=== PATIENT | female | born 1980 ===

== ENCOUNTER 2017-09-16 19:13 | Emergency (ER) | payer BC ==
[2017-09-16 20:59] LABS: BASO # 0.1 K/uL (0.0-0.2); BASO % 0.6 % (0.0-2.0); EOS # 0.3 K/uL (0.0-0.7); HEMATOCRIT 39.4 % (34.0-47.0); LYMPH # 3.8 K/uL (1.0-4.3); MEAN CELL VOLUME 78.9 fL (81.0-99.0); MEAN CORPUSCULAR HEMOGLOBIN 25.8 pg (27.0-31.0); MEAN CORPUSCULAR HGB CONC 32.7 g/dL (33.0-37.0); MEAN PLATELET VOLUME 7.8 fL (7.2-11.7); MONO # 0.6 K/uL (0.0-0.8); MONO % 7.4 % (0.0-10.0); NRBC % 0.2 % (0.0-2.0); RED CELL DISTRIBUTION WIDTH 13.7 % (11.5-14.5); WHITE BLOOD COUNT 8.7 K/uL (4.8-10.8)
[2017-09-16 21:04] LABS: RBC URINE 30 /hpf (0-3); TRANSITIONAL EPITHIAL < 1 /hpf (0-3); URINE BACTERIA OCC (<OCC); URINE BILIRUBIN NEGATIVE (NEGATIVE); URINE BLOOD 3+ (NEGATIVE); URINE COLOR Yellow (YELLOW); URINE GLUCOSE (UA) NORMAL (Normal); URINE KETONE NEGATIVE (NEGATIVE); URINE PROTEIN NEGATIVE (NEGATIVE); URINE UROBILINOGEN NORMAL mg/dL (0.2-1.0); WBC URINE 3 /hpf (0-5)
[2017-09-16 21:06] LABS: URINE LEUKOCYTE ESTERASE NEGATIVE Leu/uL (Negative)
[2017-09-16 21:11] LABS: ALB/GLOB RATIO 1.2 (1.0-2.1); ALKALINE PHOSPHATASE 68 U/L (38-126); ALT/SGPT 125 U/L (9-52); AST/SGOT 75 U/L (14-36); BILIRUBIN,TOTAL 0.7 mg/dL (0.2-1.3); BLOOD UREA NITROGEN 14 mg/dL (7-17); CALCIUM 8.5 mg/dl (8.6-10.4); CARBON DIOXIDE 26 mmol/L (22-30); CHLORIDE 103 mmol/L (98-107); GFR AFRICAN-AMERICAN > 60; GLUCOSE,RANDOM 87 mg/dL (65-105); POTASSIUM 3.7 mmol/L (3.6-5.2); SODIUM 138 mmol/L (132-148); TOTAL PROTEIN 7.5 g/dL (6.3-8.3)
[2017-09-16] MEDS ORDERED: Iohexol 240 (50 ml) PO STA (21:49)
[2017-09-16] MEDS ORDERED: Iohexol 240 (50 ml) ONE (21:57)
[2017-09-16 22:05] VITALS: TEMP 98.2
--- NOTE | 2017-09-16 22:06 | C.PDOC ---
History Of Present Illness 36 year old female presents to the ER c/o abdominal distention that has been worsening over the past 2 weeks, associated with nausea. Patient was seen at an urgent care center in [place] earlier today, states a Upreg was done that was negative, as well as an obstructive series that showed large amount of stool and nonspecific bowel gas pattern. Patient reports she has been having regular bowel movements . Has not been seen by advertising agent in approx 15 years; denies known history of uterine fibroids. Patient denies vomiting, fever, dysuria/ hematuria. Time Seen by Provider: 09/16/17 20:06 Chief Complaint (Nursing): GI Problem History Per: Patient History/Exam Limitations: no limitations Current Symptoms Are (Timing): Still Present Location Of Pain/Discomfort: Diffuse Radiation Of Pain To:: None Associated Symptoms: Nausea. denies: Fever, Chills, Vomiting, Urinary Symptoms Exacerbating Factors: None Alleviating Factors: None Last Bowel Movement: Today Abnormal Vaginal Bleeding: No Past Medical History Reviewed: Historical Data, Nursing Documentation, Vital Signs Vital Signs: Last Vital Signs Temp 98.2 F 09/16/17 22:00 Pulse 82 09/17/17 01:09 Resp 16 09/17/17 01:09 BP 155/98 H 09/17/17 01:09 Pulse Ox 99 09/17/17 01:09 - Medical History PMH: Asthma Surgical History: Tonsillectomy Family History: States: No Known Family Hx - Social History Hx Alcohol Use: No Hx Substance Use: No - Immunization History Hx Tetanus Toxoid Vaccination: No Hx Influenza Vaccination: No Hx Pneumococcal Vaccination: No Review Of Systems Except As Marked, All Systems Reviewed And Found Negative. Constitutional: Negative for: Fever, Chills Cardiovascular: Negative for: Chest Pain Respiratory: Negative for: Shortness of Breath Gastrointestinal: Positive for: Nausea, Abdominal Pain (w/ distention). Negative for: Vomiting, Diarrhea Genitourinary: Negative for: Hematuria, Vaginal Discharge, Vaginal Bleeding Physical Exam - Physical Exam Appears: Well, Non-toxic, No Acute Distress Skin: Normal Color, Warm, Dry Head: Normacephalic Eye(s): bilateral: Normal Inspection Oral Mucosa: Moist Cardiovascular: Rhythm Regular Respiratory: Normal Breath Sounds, No Rales, No Rhonchi, No Wheezing Gastrointestinal/Abdominal: Bowel Sounds, Soft, Tenderness (Mild diffuse TTP, greatest around umbilicus), Distention (Mild), No Guarding, No Rebound, No Ascites Back: No CVA Tenderness Neurological/Psych: Oriented x3 ED Course And Treatment - Laboratory Results Result Diagrams: 09/16/17 20:52 09/16/17 20:52 O2 Sat by Pulse Oximetry: 100 (Room air) Pulse Ox Interpretation: Normal - Other Rad CT SCAN ABD/PELVIS X-Ray: Viewed By Me, Read By Radiologist Interpretation: Accession No. : [id number]. Patient Name / ID : ALEXANDER RAMOS / [id number]. Exam Date : 09/16/2017 23:43:14 ( Approved ). Study Comment : Sex / Age : F / 36Y. Creator : BATSHEVA GABRIEL. Dictator : Hospital Social Worker : College Football Coach : BATSHEVA GABRIEL. Approver2 : Report Date : 2016 00:20:00. My Comment : . [facility]LY [facility]. [facility] Division of Radiology. [address] [place] [address]. Tel. no. . . . Patient Name: RACHEL MUNOZ . Pt. Address: [address] [place] [address] Rec #: [id number]. [place] [address]: Deirdre Brewster DO Pt Phone: Order Location: [facility] : 1980 Female Age: 36 Order #: [id number]. Reason for exam: distended abd and abd pain. . . . . . CT Scan. . . ABD PELVIS PO IV CONTRAST Exam Date: 09/16/17. . This imaging exam was performed at [facility]. EXAM: CT Abdomen and Pelvis With Intravenous Contrast. . CLINICAL HISTORY: 36 years old, female; Pain; Abdominal pain; Generalized; Additional info: Distended abd and abd pain. . TECHNIQUE: Axial computed tomography images of the abdomen and pelvis with intravenous. contrast. All CT scans at this facility use one or more dose reduction. techniques, viz.: automated exposure control; ma/kV adjustment per patient size. (including targeted exams where dose is matched to indication; i.e. head); or. iterative reconstruction technique. Coronal and sagittal reformatted images were created and reviewed. . CONTRAST: 100 mL of VISIPAQUE administered intravenously. . COMPARISON: No relevant prior studies available. . . . FINDINGS: Lower thorax: The bilateral lung bases are clear. . ABDOMEN: Liver: The liver is enlarged. Gallbladder and bile ducts: The gallbladder is decompressed. No calcified. stones. No significant intra- or extrahepatic biliary ductal dilation. Pancreas: Enhances homogeneously. No ductal dilation. No discrete mass. Spleen: No acute findings. Adrenals: No acute findings. Kidneys and ureters: No acute findings. No hydronephrosis or renal calculi. No discrete solid mass. . PELVIS: Bladder: No acute findings. Reproductive: A rounded focus of fluid attenuation is identified within the. right ovary measuring 4.6 cm in greatest dimension, statistically a right. ovarian cyst. The uterus is heterogeneous in attenuation and nodular in contour. suggesting fibroid disease. Appendix: The contrast filled appendix is of normal caliber (series 3, image. 105). . ABDOMEN and PELVIS: Stomach and bowel: No obstruction. No mucosal thickening. Peritoneum: No significant fluid collection. No free air. Lymph nodes: No pathologically enlarged lymph nodes. Vasculature: Unremarkable. Bones: No acute fracture. . IMPRESSION: . Findings within the right hemipelvis which likely represents a right ovarian. cyst, for which pelvic ultrasound may be performed for confirmation. Fibroid uterus. Hepatomegaly. Normal appendix. . Dictated By: Batsheva Gabriel MD. Dictated Date/Time: 12/03. Signed By: Batsheva Gabriel MD. Date Signed: 09/17/1719. Transcribed By: [facility]. Transcribe Date/Time: 09/17/1719. JARETH/VASHTI Progress Note: Blood work, urinalysis, Upreg and CT scan abd/pelvis ordered and reviewed. Reevaluation Time: 01:00 Reassessment Condition: Improved (Patient reassessed, is resting comfortably, in no current pain/distress. CT scan shows right ovarian cyst and fibroid uterus. On exam, abdomen is soft and nontender. Patient given Rx for naprosyn and instructed to follow up with advertising agent within 1 week. She understands she should return to ED if symptoms worsen.) Disposition Counseled Patient/Family Regarding: Studies Performed, Diagnosis, Need For Followup, Rx Given - Disposition Referrals: [facility] [Outside] Disposition: HOME/ ROUTINE Disposition Time: 01:00 Condition: STABLE Additional Instructions: FOLLOW UP WITH OSTEOPATHIC MEDICINE TEACHER WITHIN 1 WEEK HAVE OUTPATIENT PELVIC ULTRASOUND DONE BY THEM RETURN TO ER IMMEDIATELY IF YOU HAVE SEVERE PAIN Prescriptions: Naproxen 375 mg PO BID PRN #20 tablet PRN Reason: pain Instructions: Ovarian Cyst (ED), Uterine Fibroids (ED) Forms: [employer] (Greenlandic) Print Language: PERSIAN - Clinical Impression Clinical Impression: Uterine fibroid, Ovarian cyst - Scribe Statement The provider has reviewed the documentation as recorded by the Scribwes Newman All medical record entries made by the Bhaktiibwes were at my direction and personally dictated by me. I have reviewed the chart and agree that the record accurately reflects my personal performance of the history, physical exam, medical decision making, and the department course for this patient. I have also personally directed, reviewed, and agree with the discharge instructions and disposition.
[2017-09-16] MEDS ORDERED: Iodixanol 320 MG/ML 100 ML BOTTLE IV ONE (23:07)
--- NOTE | 2017-09-17 00:20 | CT ---
EXAM: CT Abdomen and Pelvis With Intravenous Contrast CLINICAL HISTORY: 36 years old, female; Pain; Abdominal pain; Generalized; Additional info: Distended abd and abd pain TECHNIQUE: Axial computed tomography images of the abdomen and pelvis with intravenous contrast. All CT scans at this facility use one or more dose reduction techniques, viz.: automated exposure control; ma/kV adjustment per patient size (including targeted exams where dose is matched to indication; i.e. head); or iterative reconstruction technique. Coronal and sagittal reformatted images were created and reviewed. CONTRAST: 100 mL of VISIPAQUE administered intravenously. COMPARISON: No relevant prior studies available. FINDINGS: Lower thorax: The bilateral lung bases are clear. ABDOMEN: Liver: The liver is enlarged. Gallbladder and bile ducts: The gallbladder is decompressed. No calcified stones. No significant intra- or extrahepatic biliary ductal dilation. Pancreas: Enhances homogeneously. No ductal dilation. No discrete mass. Spleen: No acute findings. Adrenals: No acute findings. Kidneys and ureters: No acute findings. No hydronephrosis or renal calculi. No discrete solid mass. PELVIS: Bladder: No acute findings. Reproductive: A rounded focus of fluid attenuation is identified within the right ovary measuring 4.6 cm in greatest dimension, statistically a right ovarian cyst. The uterus is heterogeneous in attenuation and nodular in contour suggesting fibroid disease. Appendix: The contrast filled appendix is of normal caliber (series 3, image 105). ABDOMEN and PELVIS: Stomach and bowel: No obstruction. No mucosal thickening. Peritoneum: No significant fluid collection. No free air. Lymph nodes: No pathologically enlarged lymph nodes. Vasculature: Unremarkable. Bones: No acute fracture. IMPRESSION: Findings within the right hemipelvis which likely represents a right ovarian cyst, for which pelvic ultrasound may be performed for confirmation. Fibroid uterus. Hepatomegaly. Normal appendix.
[2017-09-17 01:10] VITALS: BP 155/98; PULSE 82; RESP 16
[2017-09-22 16:41] VITALS: O2SAT 100
== END 2017-09-17 01:11 | disposition home or self-care (01) ==
LOC: C.ER 19:13 → SUPCPDRO 19:13 → C.ER 09-17 01:11
DX: D25.9 Leiomyoma of uterus, unspecified (principal); N83.201 Unspecified ovarian cyst, right side
CPT/HCPCS: 74177; 80053; 81001; 83690; 84702; 84703; 85025; 99285; Q9966; Q9967

== ENCOUNTER 2017-09-26 16:07 | Emergency (ER) | payer BC ==
[2017-09-26 16:24] VITALS: BMI 33.8
[2017-09-26 16:29] VITALS: RESP 18; TEMP 98.5
--- NOTE | 2017-09-26 16:51 | C.PDOC ---
History Of Present Illness 36 year old female with a history of HTN presents to the ED as a referral by OB/ FIBERGLASS PRODUCT TESTER for evaluation of HTN. Patient was seen in the ED on 09/17/2017 and diagnosed with HTN and uterine fibroids. Patient states she presumed high blood pressure was due to ER stress but when followed up with doctor she was still hypertensive. Patient has a pending PMD evaluation scheduled for mid-October. Oatient denies headache, nausea, dizziness, fever, chills, nausea, vomiting, or other complaints at this time. Time Seen by Provider: 09/26/17 16:37 Chief Complaint (Nursing): High Blood Pressure History Per: Patient, Other (FAMILY PRACTICE PHYSICIAN) History/Exam Limitations: no limitations Associated Symptoms: denies: Chest Pain, Dyspnea, Dizziness, Headache Quality Of Symptoms: Asymptomatic Recent travel outside of the [place]: No Additional History Per: Prior Records Past Medical History Reviewed: Historical Data, Nursing Documentation, Vital Signs Vital Signs: Last Vital Signs Temp 98.5 F 09/26/17 16:26 Pulse 87 09/26/17 17:09 Resp 18 09/26/17 17:09 BP 151/97 H 09/26/17 17:09 Pulse Ox 99 09/26/17 17:17 - Medical History PMH: Asthma Surgical History: Tonsillectomy Family History: States: Unknown Family Hx - Social History Hx Alcohol Use: No Hx Substance Use: No - Immunization History Hx Tetanus Toxoid Vaccination: No Hx Influenza Vaccination: No Hx Pneumococcal Vaccination: No Review Of Systems Constitutional: Negative for: Fever, Chills Cardiovascular: Negative for: Chest Pain, Palpitations Gastrointestinal: Negative for: Nausea, Vomiting, Abdominal Pain, Diarrhea Physical Exam - Physical Exam Appears: Non-toxic, No Acute Distress, Other (Patient's blood pressure is 154/ 97 on exam) Skin: Warm, Dry, No Rash Head: Atraumatic, Normacephalic, No Tenderness Eye(s): bilateral: Normal Inspection, PERRL, EOMI Oral Mucosa: Moist Neck: Supple Chest: Symmetrical, No Deformity Cardiovascular: Rhythm Regular, No Murmur Respiratory: No Rales, No Rhonchi, No Wheezing, Other (clear to auscultation bilaterally ) Gastrointestinal/Abdominal: Soft, No Tenderness, Distention (consistent with fibroids), No Guarding, No Rebound Extremity: Normal ROM, No Tenderness Neurological/Psych: Oriented x3 ED Course And Treatment O2 Sat by Pulse Oximetry: 99 (RA) Pulse Ox Interpretation: Normal Progress Note: Patient was given Catapres. Medical Decision Making Medical Decision Making: Reviewed old records, patient's blood pressure was consistent with prior values from prior visits. Patient will be discharged for HTN and instructed to follow up with PMD. Disposition Counseled Patient/Family Regarding: Diagnosis, Need For Followup - Disposition Referrals: YOUR,PMD [Other] Disposition: HOME/ ROUTINE Disposition Time: 16:52 Condition: IMPROVED Prescriptions: Hydrochlorothiazide [Microzide] 12.5 mg PO DAILY #30 cap Instructions: Hypertension (ED) Forms: [employer] (Kyrgyz) - Clinical Impression Clinical Impression: Uterine fibroid, Hypertension - Scribe Statement The provider has reviewed the documentation as recorded by the Scribe Magda Villalta All medical record entries made by the Scribe were at my direction and personally dictated by me. I have reviewed the chart and agree that the record accurately reflects my personal performance of the history, physical exam, medical decision making, and the department course for this patient. I have also personally directed, reviewed, and agree with the discharge instructions and disposition.
[2017-09-26 17:10] VITALS: BP 151/97; PULSE 87
[2017-09-26 17:13] VITALS: O2SAT 99
== END 2017-09-26 17:10 | disposition home or self-care (01) ==
LOC: C.ER 16:07
DX: I10 Essential (primary) hypertension (principal); D25.9 Leiomyoma of uterus, unspecified

== ENCOUNTER 2017-10-03 14:39 | Emergency (ER) | payer BC ==
[2017-10-03 14:40] VITALS: BMI 33.8
[2017-10-03 15:15] VITALS: O2SAT 98
[2017-10-03 16:21] LABS: RBC URINE 3 /hpf (0-3); TRANSITIONAL EPITHIAL < 1 /hpf (0-3); URINE BACTERIA FEW (<OCC); URINE BILIRUBIN NEGATIVE (NEGATIVE); URINE BLOOD NEGATIVE (NEGATIVE); URINE COLOR Yellow (YELLOW); URINE GLUCOSE (UA) NORMAL (Normal); URINE KETONE NEGATIVE (NEGATIVE); URINE LEUKOCYTE ESTERASE 3+ Leu/uL (Negative); URINE PROTEIN NEGATIVE (NEGATIVE); URINE UROBILINOGEN NORMAL mg/dL (0.2-1.0); WBC URINE 32 /hpf (0-5)
[2017-10-03] MEDS ORDERED: Sodium Chloride 0.9% 1,000 ML IV ONE (16:23)
--- NOTE | 2017-10-03 16:31 | C.PDOC ---
History Of Present Illness 36 year old female with a PMHx of Fibroids and HTN presents to the ED with complaints of fever, chills, and abdominal pain since last night. Patient notes sore throat, diarrhea, and increased urinary frequency that began this morning. Patient took ibuprofen yesterday with minimal relief and has been compliant with blood pressure medications. Patient has an appointment scheduled for this month with allied health professional regarding plan for Fibroids including potential hysterectomy. Patient has not received the flu vaccine this season. Patient denies vomiting, dysuria, or other complaints at this time. Time Seen by Provider: 10/03/17 15:55 Chief Complaint (Nursing): Fever Past Medical History Vital Signs: Last Vital Signs Temp 99.3 F 10/03/17 17:26 Pulse 81 10/03/17 18:17 Resp 20 10/03/17 18:17 BP 146/91 H 10/03/17 18:17 Pulse Ox 98 10/03/17 18:17 - Medical History PMH: Asthma, HTN Surgical History: Tonsillectomy Family History: States: Unknown Family Hx - Social History Hx Alcohol Use: No Hx Substance Use: No - Immunization History Hx Tetanus Toxoid Vaccination: No Hx Influenza Vaccination: No Hx Pneumococcal Vaccination: No Review Of Systems Constitutional: Positive for: Fever, Chills ENT: Positive for: Other (sore throat ) Cardiovascular: Negative for: Chest Pain, Palpitations Respiratory: Negative for: Cough, Shortness of Breath Physical Exam - Physical Exam Appears: Non-toxic, Other (uncomfortable) Skin: Warm, Dry, No Rash Head: Atraumatic, Normacephalic, No Tenderness Eye(s): bilateral: Normal Inspection, PERRL, EOMI Nose: Normal Oral Mucosa: Moist Throat: No Erythema, No Exudate Neck: Normal ROM, Supple Lymphatic: Normal Exam Chest: Symmetrical, No Deformity Cardiovascular: Rhythm Regular Respiratory: No Accessory Muscle Use, No Rales, No Rhonchi, No Wheezing, Other ( clear to auscultation bilaterally) Gastrointestinal/Abdominal: Soft, Tenderness (pelvic tenderness bilaterally), Distention, No Guarding, No Rebound Back: No CVA Tenderness, No Vertebral Tenderness Extremity: Normal ROM, No Tenderness Neurological/Psych: Oriented x3 ED Course And Treatment - Laboratory Results Result Diagrams: 10/03/17 16:36 10/03/17 16:36 O2 Sat by Pulse Oximetry: 98 (RA) Pulse Ox Interpretation: Normal Progress Note: Blood work and labs were ordered. Patient was given Tylenol and IV fluids. Case endorsed to Dr Nuñez pending CT and disposition. Disposition - Disposition Disposition Time: 19:00 Condition: STABLE Forms: [employer] (Polish) - Clinical Impression Clinical Impression: Fever, Abdominal pain - PA / NURSES' ASSOCIATION COUNSELOR / Resident Statement MD/DO has reviewed & agrees with the documentation as recorded. - Scribe Statement The provider has reviewed the documentation as recorded by the Scribe Magda Villalta All medical record entries made by the Bhaktiibwes were at my direction and personally dictated by me. I have reviewed the chart and agree that the record accurately reflects my personal performance of the history, physical exam, medical decision making, and the department course for this patient. I have also personally directed, reviewed, and agree with the discharge instructions and disposition.
[2017-10-03 16:45] LABS: BASO # 0.1 K/uL (0.0-0.2); BASO % 0.4 % (0.0-2.0); EOS # 0.1 K/uL (0.0-0.7); EOS % 0.5 % (0.0-4.0); LYMPH # 2.4 K/uL (1.0-4.3); LYMPH % 19.3 % (20.0-40.0); MEAN CELL VOLUME 78.5 fL (81.0-99.0); MEAN CORPUSCULAR HEMOGLOBIN 25.7 pg (27.0-31.0); MEAN CORPUSCULAR HGB CONC 32.8 g/dL (33.0-37.0); MEAN PLATELET VOLUME 7.6 fL (7.2-11.7); MONO # 0.8 K/uL (0.0-0.8); MONO % 6.3 % (0.0-10.0); NRBC % 0.1 % (0.0-2.0); RED CELL DISTRIBUTION WIDTH 13.4 % (11.5-14.5); WHITE BLOOD COUNT 12.6 K/uL (4.8-10.8)
[2017-10-03 16:55] LABS: ALB/GLOB RATIO 1.3 (1.0-2.1); ALKALINE PHOSPHATASE 71 U/L (38-126); ALT/SGPT 91 U/L (9-52); AST/SGOT 34 U/L (14-36); BILIRUBIN,TOTAL 0.5 mg/dL (0.2-1.3); BLOOD UREA NITROGEN 10 mg/dL (7-17); CALCIUM 8.4 mg/dl (8.6-10.4); CARBON DIOXIDE 25 mmol/L (22-30); CHLORIDE 100 mmol/L (98-107); GFR AFRICAN-AMERICAN > 60; GLUCOSE,RANDOM 91 mg/dL (65-105); POTASSIUM 3.8 mmol/L (3.6-5.2); SODIUM 135 mmol/L (132-148); TOTAL PROTEIN 7.4 g/dL (6.3-8.3)
[2017-10-03] MEDS ORDERED: cefTRIAXone IV 1 gm in Dextros 50 ML IV ONE (16:56)
[2017-10-03] MEDS ORDERED: cefTRIAXone IV 1 gm in Dextros 50 ML IVPB ONE (17:18)
[2017-10-03 17:27] VITALS: TEMP 99.3
[2017-10-03] MEDS ORDERED: Sodium Chloride 0.9% 500 ML IV ONE ×2 (17:37→18:37)
[2017-10-03] MEDS ORDERED: Iohexol 350mg/ml 100 ML ONE (18:06)
[2017-10-03 19:22] VITALS: BP 142/87; PULSE 93; RESP 17
--- NOTE | 2017-10-03 20:28 | CT ---
EXAM: CT Abdomen and Pelvis With Intravenous Contrast CLINICAL HISTORY: 36 years old, female; Pain; Abdominal pain; Flank; Left lower quadrant (llq) TECHNIQUE: Axial computed tomography images of the abdomen and pelvis with intravenous contrast. All CT scans at this facility use one or more dose reduction techniques, viz.: automated exposure control; ma/kV adjustment per patient size (including targeted exams where dose is matched to indication; i.e. head); or iterative reconstruction technique. Coronal and sagittal reformatted images were created and reviewed. CONTRAST: 100 mL of OMNIPAQUE 350 administered intravenously. COMPARISON: CT - ABD PELVIS PO IV CONTRAST 2017-09-16 23:43 FINDINGS: Lower thorax: No acute findings. ABDOMEN: Liver: Fatty infiltration. Gallbladder and bile ducts: No calcified stones. No ductal dilation. Pancreas: No ductal dilation. No mass. Spleen: No splenomegaly. Adrenals: No mass. Kidneys and ureters: No mass. No hydronephrosis. Stomach and bowel: Fluid within small bowel. Fluid/loose stool within cecum. Apparent mild mural/fold thickening vs underdistention of few jejunal loops. No associated inflammatory stranding. Few scattered diverticula within colon. No associated inflammatory stranding. Few minimally distended loops of small bowel, likely ileus. Appendix: Normal caliber. No inflammation. PELVIS: Bladder: Unremarkable. Reproductive: Probable nabothian cysts. ABDOMEN and PELVIS: Intraperitoneal space: No significant fluid collection. No free air. Bones/joints: No acute fracture. Soft tissues: Unremarkable. Vasculature: Unremarkable. No aneurysm. Lymph nodes: No pathologically enlarged lymph nodes. IMPRESSION: 1. Possible mild enteritis. Clinical correlation is needed. 2. Incidental/non-acute findings are described above.
== END 2017-10-03 21:53 | disposition home or self-care (01) ==
LOC: C.ER 14:39
DX: R10.9 Unspecified abdominal pain (principal); R50.9 Fever, unspecified
CPT/HCPCS: 74177; 80053; 81001; 83690; 84703; 85025; 87086; 87804; 96360; 96361; 99285; J0696; J7040; Q9967

== ENCOUNTER 2018-05-02 10:25 | Inpatient (IN) | payer BC ==
[2018-05-02 11:55] LABS: PROTHROMBIN TIME 11.4 SECONDS (9.7-12.2)
[2018-05-02] MEDS ORDERED: cefOXitin IV 2 gm in Dextrose 2 GM/50 ML BAG IVPB ONE (13:40)
[2018-05-02] MEDS ORDERED: Midazolam 2 MG/2 ML VIAL ONE (13:54)
[2018-05-02] MEDS ORDERED: Propofol 10 mg/ml Inj (20 ML) ONE (13:55)
[2018-05-02] MEDS ORDERED: ePHEDrine 50 mg/ml Inj ONE (14:23)
[2018-05-02] MEDS ORDERED: Rocuronium 10 mg/ml (5 ml) ONE (14:23)
[2018-05-02] MEDS: Bupivacaine 0.25% 20 ML INJ IJ ONE ×2 (14:45→15:47)
[2018-05-02] MEDS ORDERED: Vasopressin 20 Units/ml Inj ONE (15:39)
[2018-05-02] MEDS ORDERED: Clindamycin 2% Vaginal Cream(40 gm) ONE (15:39)
[2018-05-02] MEDS ORDERED: Rocuronium 10 mg/ml (10 ml) ONE (17:05)
--- NOTE | 2018-05-02 17:59 | PCM.SURG1 ---
Surgeon's Initial Post Op Note - Surgeon's Notes Surgeon: Dr. Conklin Wrap Checker: DR. Beatty Type of Anesthesia: General Endo Pre-Operative Diagnosis: Chronic pelvic pain, dysmenorrhea, menorrhagia Operative Findings: uterus approx 10 cm in size. Enlarged ovaries bilaterally with multiple small cysts, otherwise, normal appearing anatomy Post-Operative Diagnosis: same Operation Performed: total laparoscopic hysterectomy, BSO, cystoscopy Specimen/Specimens Removed: uterus, cervix, bilateral fallopian tubes and ovaries Estimated Blood Loss: EBL {In ML}: 150 Blood Products Given: N/A Drains Used: No Drains Post-Op Condition: Good Date of Surgery/Procedure: 05/02/18 Time of Surgery/Procedure: 14:25
[2018-05-02] MEDS ORDERED: cefOXitin IV 2 gm in Dextrose 2 GM/50 ML BAG IVPB SCH (18:00)
[2018-05-02] MEDS: HYDROmorphone 0.5 mg/0.5 ml ISec IVP PRN ×4 (18:15→19:05)
[2018-05-02] MEDS: Sodium Chloride 0.9% 1,000 ML IV SCH (20:00)
[2018-05-02] MEDS: cefOXitin IV 2 gm in Dextrose 2 GM/50 ML BAG IVPB SCH (21:54)
[2018-05-03] MEDS: cefOXitin IV 2 gm in Dextrose 2 GM/50 ML BAG IVPB SCH ×2 (06:07→14:05)
[2018-05-03] MEDS: Sodium Chloride 0.9% 1,000 ML IV SCH (06:08)
[2018-05-03 07:13] LABS: HEMOGLOBIN 11.3 g/dL (11.0-16.0); MEAN CORPUSCULAR HEMOGLOBIN 26.7 pg (27.0-31.0); MEAN CORPUSCULAR HGB CONC 32.9 g/dL (33.0-37.0); MEAN PLATELET VOLUME 7.7 fL (7.2-11.7); RBC 4.24 Mil/uL (3.80-5.20); WHITE BLOOD COUNT 9.9 K/uL (4.8-10.8)
[2018-05-03 07:21] LABS: BLOOD UREA NITROGEN 11 mg/dL (7-17); CALCIUM 7.8 mg/dl (8.6-10.4); GFR AFRICAN-AMERICAN > 60; GFR NON-AFRICAN AMERICAN > 60
[2018-05-03 08:45] VITALS: BP 122/79; PULSE 74; RESP 18; O2SAT 98
[2018-05-03 11:44] VITALS: TEMP 98.3
--- NOTE | 2018-05-05 03:17 | OP ---
PROCEDURE DATE: 05/02/2018 SURGEON: Simona Conklin MD RELATIONSHIP SPECIALIST SURGEON: Matthew Beatty MD TYPE OF ANESTHESIA: General endotracheal. PREOPERATIVE DIAGNOSES: Chronic pelvic pain, dysmenorrhea, menorrhagia. POSTOPERATIVE DIAGNOSES: Chronic pelvic pain, dysmenorrhea, menorrhagia. INTRAOPERATIVE FINDINGS: Uterus approximately 10 cm in size and large ovaries bilaterally with multiple small cysts. Otherwise, normal appearing anatomy. SURGERY PERFORMED: Total laparoscopic hysterectomy, bilateral salpingo-oophorectomy, and cystoscopy. SPECIMENS REMOVED: Uterus, cervix, and bilateral fallopian tubes and ovaries. ESTIMATED BLOOD LOSS: 150 mL. BLOOD PRODUCTS: There were no blood products given. DRAINS: There were no drains used. POSTOPERATIVE CONDITION: Stable. ADDITIONAL COMMENTS: All lap counts and instrument counts were correct x3. DESCRIPTION OF PROCEDURE: After all relevant documentation was reviewed and signed by , the patient was taken back to the OR room. She was prepped and draped in the usual sterile fashion after being placed in lithotomy position. A weighted speculum was then introduced and the anterior lip of the cervix was grabbed with a single-tooth tenaculum. The cervix was then serially dilated until a VCare device was inserted. Once the VCare device was in place, attention was then placed to the patient's abdomen where a 5-mm umbilical incision was made with the use of a scalpel. The laparoscope was then entered into the intraabdominal cavity under direct visualization. On confirmation, we were inside the intraabdominal cavity, a pneumoperitoneum were achieved. Bilateral lower quadrant ports were placed under direct visualization, both 5 mm in size. Attention was then placed to the right adnexa where the round ligament was cauterized and cut with the use of the ligature, and the anterior lip of the broad ligament was then dissected down. The fallopian tube was then transected and cut, and the posterior lip of the broad ligament was then transected down in order to skeletonize the uterine arteries. The bladder flap was created on the right side, and these sets were then repeated on the left side in the same fashion. The uterine arteries were then cauterized and cut bilaterally, and the cardinal ligaments as well. Decision was then made to proceed with the colpotomy from the vagina. Attention was then placed to the patient's vagina where the cervix was grasped with single-tooth tenaculum and Pitressin was injected circumferentially. Once the colpotomy was made, the colpotomy was then extended circumferentially until the cervix was released. Bilateral uterosacral ligaments were then cauterized and cut and suture ligated. The uterus was then delivered vaginally and the vaginal cuff was re-approximated with the use of 0 Vicryl and two layers in a running locked fashion. Excellent hemostasis was noted. Attention was then placed inside the intraabdominal cavity once again where a small amount of bleeding was noted from the vaginal cuff and was cauterized with a use of ligature. FloSeal and Interceed were then placed, and excellent hemostasis was noted even after evacuating the pneumoperitoneum. Prior to evacuating the pneumoperitoneum, attention was then placed to the right ovary where the IP ligament was transected and cut and the ovary and remaining portion of the fallopian tube was then removed under direct visualization. In a similar fashion, the right fallopian tube was then removed as well. The pedicles were also examined, and no area of active bleeding was noted. Pneumoperitoneum was evacuated, and the ports were removed. The right lower quadrant port which had been previously extended in order to deliver the right ovary. The fascia was re-approximated with the use of Cole-Jada device and 0 Vicryl. The skin was then re-approximated with the use of 3-0 Monocryl in a subcuticular fashion and Dermabond was placed over the bilateral lower quadrant insertion. The umbilical incision was covered with a 2 x 2 and a Tegaderm. We proceeded now with the cystoscopy. The Horn catheter was removed. The cystoscope was introduced. The dome of the bladder appeared intact and bilateral urethral jets were noted. The vagina was then packed. Horn was replaced, and the patient was then taken to the recovery room in stable condition. Simona Conklin MD
== END 2018-05-03 21:04 | disposition home or self-care (01) | DRG 743 ==
LOC: C.SDS 10:25 → C.4M 18:00
PROVIDERS: ADMIT Obstetrics & Gynecology; ATTEND Obstetrics & Gynecology
PROC: 0UT24ZZ Resection of Bilateral Ovaries, Percutaneous Endoscopic Approach (ICD-10-PCS; 2018-05-02)
PROC: 0UT74ZZ Resection of Bilateral Fallopian Tubes, Percutaneous Endoscopic Approach (ICD-10-PCS; 2018-05-02)
PROC: 0TJB8ZZ Inspection of Bladder, Via Natural or Artificial Opening Endoscopic (ICD-10-PCS; 2018-05-02)
PROC: 0UT94ZZ Resection of Uterus, Percutaneous Endoscopic Approach (ICD-10-PCS; principal; 2018-05-02 13:45)
DX: N88.8 Other specified noninflammatory disorders of cervix uteri (principal); N92.0 Excessive and frequent menstruation with regular cycle; N94.6 Dysmenorrhea, unspecified; N83.02 Follicular cyst of left ovary; N83.01 Follicular cyst of right ovary; N83.292 Other ovarian cyst, left side; N83.291 Other ovarian cyst, right side; R10.2 Pelvic and perineal pain

== ENCOUNTER 2018-05-08 18:57 | Observation (INO) | payer BC ==
[2018-05-08 18:58] VITALS: BMI 33.8
[2018-05-08] MEDS ORDERED: Sodium Chloride 0.9% 1,000 ML ONE (19:44)
[2018-05-08] MEDS ORDERED: Sodium Chloride 0.9% 1,000 ML IV ONE ×2 (19:47→20:03)
[2018-05-08 19:56] LABS: VENOUS BLOOD GAS BASE EXCESS 2.8 mmol/L (0.0-2.0); VENOUS BLOOD GAS PCO2 40 mmHg (40-60); VENOUS BLOOD GAS PO2 43 mm/Hg (30-55); VENOUS BLOOD PH 7.44 (7.32-7.43)
--- NOTE | 2018-05-08 20:03 | C.PDOC ---
History Of Present Illness 37 y/o female presents to the ED with complaints of fever and abdominal pain, worsening since 05/06/18. Patient is s/p total abdominal hysterectomy on . Otherwise she denies any nausea, vomiting, diarrhea, or other associated symptoms. Temperature on arrival is 100.8 Time Seen by Provider: 05/08/18 20:02 Chief Complaint (Nursing): Fever History Per: Patient History/Exam Limitations: no limitations Onset/Duration Of Symptoms: Days Current Symptoms Are (Timing): Still Present Severity: Moderate Pain Scale Rating Of: 5 Reports Recently: Treated By A Physician Recent travel outside of the [place]: No Additional History Per: Prior Records Past Medical History Reviewed: Historical Data, Nursing Documentation, Vital Signs Vital Signs: Last Vital Signs Temp 100.1 F H 05/09/18 00:03 Pulse 89 05/08/18 23:47 Resp 17 05/08/18 23:47 BP 122/69 05/08/18 23:47 Pulse Ox 97 05/08/18 23:59 - Medical History PMH: Asthma (NEVER HOSPITALIZED), HTN, Hypercholesterolemia, Hypothyroidism Denies: Chronic Kidney Disease Surgical History: Tonsillectomy Other Surgeries: Total abdominal hysterectomy 05/03 Family History: States: Unknown Family Hx - Social History Hx Alcohol Use: No Hx Substance Use: No - Immunization History Hx Tetanus Toxoid Vaccination: No Hx Influenza Vaccination: No Hx Pneumococcal Vaccination: No Review Of Systems Constitutional: Positive for: Fever Gastrointestinal: Positive for: Abdominal Pain. Negative for: Nausea, Vomiting , Diarrhea Physical Exam - Physical Exam Appears: Non-toxic, No Acute Distress Skin: Warm, Dry Head: Normacephalic Eye(s): bilateral: Normal Inspection Oral Mucosa: Dry Neck: Trachea Midline, Supple Chest: Symmetrical Cardiovascular: Rhythm Regular Respiratory: No Rales, No Rhonchi, No Wheezing Gastrointestinal/Abdominal: Soft, Tenderness (diffuse), No Distention, Other ( incision sites are clean and dry, no surrounding erythema) Back: Normal Inspection Extremity: Bilateral: Atraumatic, No Pedal Edema, Normal ROM Pulses: Left Dorsalis Pedis: Normal, Right Dorsalis Pedis: Normal Neurological/Psych: Oriented x3 Gait: Steady ED Course And Treatment - Laboratory Results Result Diagrams: 05/08/18 20:12 05/08/18 20:52 O2 Sat by Pulse Oximetry: 97 (RA) Pulse Ox Interpretation: Normal - CT Scan/US CT A/P Other Rad Studies (CT/US): Read By Radiologist, Radiology Report Reviewed CT/US Interpretation: Name: RACHEL MUNOZ Age: 37Years F Date: 05/08/2018. Requesting Physician: CARMEN LOYD : 1980. [facility] Procedure Ordered As Accession Number of. Images. CT ABDOMEN/PELVIS. W. CT ABD PELVIS IV CONTRAST. ONLY. [id number]. J. 614. Provided Clinical History: abd pain s/p recent KIMBER. EXAM: CT Abdomen and Pelvis With Intravenous Contrast. EXAM DATE/TIME: Examination ordered 05/08/2018 9:49 PM. Image number total count reviewed 614. CLINICAL HISTORY: The patient is 37 years old and is female; Pain; Abdominal pain; Localized; Right lower quadrant ( rlq);. Prior surgery; Surgery date: <1 month; Surgery type: Hysterectomy; Additional info: Abd pain S/P. recent kimber Facility exam id and description: Ct_ abdpelciv abd pelvis iv contrast only. TECHNIQUE: Axial computed tomography images of the abdomen and pelvis with intravenous contrast. All CT. scans at this facility use at least one of these dose optimization techniques: automated exposure. control; mA and/or kV adjustment per patient size (includes targeted exams where dose is matched to. clinical indication); or iterative reconstruction. Coronal and sagittal reformatted images were created and reviewed. COMPARISON: CT - ABD PELVIS IV CONTRAST ONLY 2017-10-03 20:05. FINDINGS: LUNG BASES: Dependent atelectasis. ABDOMEN: LIVER: Unremarkable. GALLBLADDER AND BILE DUCTS: Unremarkable. No calcified stones. No ductal dilation. PANCREAS: Unremarkable. No mass. No ductal dilation. SPLEEN: Unremarkable. No splenomegaly. ADRENALS: Unremarkable. No mass. KIDNEYS AND URETERS: Unremarkable. No solid mass. No hydronephrosis. STOMACH AND BOWEL: Unremarkable. No obstruction. No mucosal thickening. PELVIS: APPENDIX: The appendix is thickened measuring up to 1.1cm which may be from developing. appendicitis. Correlate clinically. BLADDER: Unremarkable. REPRODUCTIVE: 7 x 4 cm collection with foci of air at the operative site from hysterectomy may be. abscess. Evaluate clinically. There is mild inflammatory changes in the pelvis. ABDOMEN and PELVIS: INTRAPERITONEAL SPACE: See above. BONES/JOINTS: No acute fracture. SOFT TISSUES: Unremarkable. VASCULATURE: Unremarkable. No abdominal aortic aneurysm. LYMPH NODES: There are few pericecal lymph nodes that may be reactive. IMPRESSION: 1. 7 x 4 cm collection with foci of air at the operative site from hysterectomy may be abscess. Evaluate clinically. There is mild inflammatory changes in the pelvis. 2. The appendix is thickened measuring up to 1.1cm which may be from developing appendicitis. Correlate clinically. 3. There are few pericecal lymph nodes that may be reactive. Thank you for allowing us to participate in the care of your patient. Dictated and Authenticated by: Chiara Campoverde MD. 05/08/2018 11:35 PM Eastern Time ( [place] & [place]) Progress Note: Labs, Chest X-ray, VBG ordered. Patient treated with IV fluids, 30 mg IV Toradol, and 2 mg IV Morphine. Also given IV Zosyn and Vanco. 11:43pm Received call from [facility], discussed acute CT findings. 11:50 PM Placed call to dr conklin [phone]. spoke also with dr Landers. Ok to admit Disposition Discussed With .: Simona Conklin Comment: acceptd the pt on her service and took over the care at 12;30 am Counseled Patient/Family Regarding: Studies Performed, Diagnosis - Disposition Disposition: HOSPITALIZED Disposition Time: 20:03 Condition: FAIR Forms: [facility] (Martiniquais) - POA Present On Arrival: Poor Glycemic Control - Clinical Impression Clinical Impression: Vomiting, Abdominal abscess - Scribe Statement The provider has reviewed the documentation as recorded by the Scribe (Leti Enciso) Provider Attestation: All medical record entries made by the Scribe were at my direction and personally dictated by me. I have reviewed the chart and agree that the record accurately reflects my personal performance of the history, physical exam, medical decision making, and the department course for this patient. I have also personally directed, reviewed, and agree with the discharge instructions and disposition. Decision To Admit - Pt Status Changed To: Hospital Disposition Of: Observation - . Bed Request Type: Regular Admitting Physician: Simona Conklin Patient Diagnosis: Abdominal pain, Vomiting, Abdominal abscess
[2018-05-08] MEDS ORDERED: Piperacillin/Tazobact 3.375 gm 100 ML IVPB STA (20:04)
[2018-05-08 20:09] LABS: BASO % 0.2 % (0.0-2.0); EOS # 0.1 K/uL (0.0-0.7); EOS % 0.7 % (0.0-4.0); LYMPH # 1.1 K/uL (1.0-4.3); LYMPH % 6.3 % (20.0-40.0); MEAN CELL VOLUME 79.8 fL (81.0-99.0); MEAN CORPUSCULAR HEMOGLOBIN 26.1 pg (27.0-31.0); MEAN CORPUSCULAR HGB CONC 32.8 g/dL (33.0-37.0); MEAN PLATELET VOLUME 7.5 fL (7.2-11.7); MONO # 1.2 K/uL (0.0-0.8); MONO % 6.9 % (0.0-10.0); NEUT # 15.5 K/uL (1.8-7.0); NEUT % 85.9 % (50.0-75.0); NRBC % 0.2 % (0.0-2.0); PLATELET COUNT 308 K/uL (130-400); RBC 4.22 Mil/uL (3.80-5.20); RED CELL DISTRIBUTION WIDTH 13.5 % (11.5-14.5)
[2018-05-08 20:12] LABS: WHITE BLOOD COUNT 18.1 K/uL (4.8-10.8)
[2018-05-08] MEDS ORDERED: Vancomycin 1 GM 1 GM/250 ML BAG IVPB SCH (20:15)
[2018-05-08 20:17] LABS: INR 1.2; PROTHROMBIN TIME 13.1 SECONDS (9.7-12.2)
[2018-05-08] MEDS ORDERED: Piperacillin/Tazobact 3.375 gm 100 ML IVPB ONE (20:20)
[2018-05-08 20:32] LABS: ANISOCYTOSIS SLIGHT; BANDS 8 % (0-2); EOSINOPHIL 1 % (0-4); HYPOCHROMIC SLIGHT; LYMPHOCYTE 5 % (20-40); MONOCYTE 3 % (0-10); NEUTROPHIL 83 % (50-75); PLATELET ESTIMATE NORMAL (NORMAL); POIKILOCYTOSIS SLIGHT; TOTAL CELLS COUNTED 100
[2018-05-08 20:33] LABS: TARGET CELLS SLIGHT; TEARDROP CELLS SLIGHT
[2018-05-08 21:09] LABS: ALB/GLOB RATIO 1.1 (1.0-2.1); ALT/SGPT 34 U/L (9-52); AST/SGOT 28 U/L (14-36); BLOOD UREA NITROGEN 11 mg/dL (7-17); CALCIUM 8.9 mg/dl (8.6-10.4); GFR AFRICAN-AMERICAN > 60; GFR NON-AFRICAN AMERICAN > 60
[2018-05-08 21:36] LABS: URINE BILIRUBIN NEGATIVE (NEGATIVE); URINE CLARITY HAZY (Clear); URINE COLOR YELLOW (YELLOW); URINE GLUCOSE (UA) Normal (Normal)
[2018-05-08 21:37] LABS: LIPASE 26 U/L (23-300)
[2018-05-08 21:37] LABS: SQUAMOUS EPITHIAL 8 /hpf (0-5); URINE BACTERIA RARE (<OCC); URINE BLOOD 2+ (NEGATIVE); URINE LEUKOCYTE ESTERASE 3+ Leu/uL (Negative); URINE PROTEIN NEGATIVE (NEGATIVE); URINE UROBILINOGEN Normal mg/dL (0.2-1.0)
[2018-05-08] MEDS ORDERED: Vancomycin 1 gm/NS 200 ml 1 GM/200 ML BAG IVPB ONE (22:00)
[2018-05-08] MEDS ORDERED: Iodixanol 320 MG/ML 100 ML BOTTLE IV ONE (22:12)
[2018-05-09] MEDS ORDERED: Sodium Chloride 0.9% 1,000 ML IV ONE (00:32)
[2018-05-09] MEDS: Piperacillin/Tazobact 3.375 GM in Sodium Chloride 100 ML IVPB SCH ×3 (01:26→17:23)
[2018-05-09 07:37] VITALS: RESP 20
--- NOTE | 2018-05-09 08:44 | RAD ---
Date of service: 05/08/2018 PROCEDURE: CHEST RADIOGRAPH, 1 VIEW HISTORY: Fever COMPARISON: None available. FINDINGS: LUNGS: The lungs are well inflated and clear. PLEURA: No pneumothorax or pleural fluid seen. CARDIOVASCULAR: Normal. OSSEOUS STRUCTURES: No significant abnormalities. VISUALIZED UPPER ABDOMEN: Normal. OTHER FINDINGS: None. IMPRESSION: No active pulmonary disease.
[2018-05-09] MEDS ORDERED: Morphine 4 MG/ML VIAL IV ONE (10:16)
--- NOTE | 2018-05-09 10:31 | CT ---
Date of service: 05/08/2018 PROCEDURE: CT Abdomen and Pelvis with contrast HISTORY: abd pain s/p recent MONTRELL COMPARISON: CT scan of the abdomen pelvis dated 10/03/2017. TECHNIQUE: Contrast dose: 100 mL Visipaque 320 Radiation dose: Total exam DLP = 927.4 mGy-cm. This CT exam was performed using one or more of the following dose reduction techniques: Automated exposure control, adjustment of the mA and/or kV according to patient size, and/or use of iterative reconstruction technique. FINDINGS: LOWER THORAX: Unremarkable. LIVER: Unremarkable. No gross lesion or ductal dilatation. GALLBLADDER AND BILE DUCTS: Unremarkable. PANCREAS: Unremarkable. No gross lesion or ductal dilatation. SPLEEN: Unremarkable. ADRENALS: Unremarkable. No mass. KIDNEYS AND URETERS: Unremarkable. No hydronephrosis. No solid mass. VASCULATURE: Unremarkable. No aortic aneurysm. BOWEL: Cecal thickening. No obstruction. No gross mural thickening. APPENDIX: Dilated, thick walled, hyperenhancing appendix measuring up to 1.1 cm. PERITONEUM: 7 x 4 cm phlegmonous area of air and fluid at the operative site without definitive capsule. LYMPH NODES: Unremarkable. No enlarged lymph nodes. BLADDER: Unremarkable. REPRODUCTIVE: Status post recent hysterectomy. BONES: No acute fracture. OTHER FINDINGS: None. IMPRESSION: Status post hysterectomy with 7 x 4 cm phlegmonous area of air and fluid at the operative site without definitive capsule that may go on to develop into an organized abscess. Dilated, thick walled, hyperenhancing appendix which may be reactive to adjacent postoperative collection versus developing acute appendicitis. Clinical correlation is recommended.
--- NOTE | 2018-05-09 15:26 | CP.PCM.PN ---
Subjective - Date & Time of Evaluation Date of Evaluation: 05/09/18 Time of Evaluation: 10:00 - Subjective Subjective: Patient was evaluated at bedside. She reports moderate abdominal pain, localized to right lower quadrant. No other acute complaints at this time. No nausea, vomiting, SOB, or other. Objective - Vital Signs/Intake and Output Vital Signs (last 24 hours): Temp Pulse Resp BP Pulse Ox 99 F 94 H 20 121/77 98 05/09/18 07:36 05/09/18 07:36 05/09/18 07:36 05/09/18 07:36 05/09/18 07:36 Intake and Output: 05/09/18 05/09/18 06:59 18:59 Intake Total 400 Balance 400 - Medications Medications: Current Medications Acetaminophen (Tylenol 325mg Tab) 650 mg PO Q6H PRN PRN Reason: Fever >100.4 F Piperacillin Sod/Tazobactam (Sod 3.375 gm/ Sodium Chloride) 100 mls @ 200 mls/ hr IVPB Q8H JENNYFER PRN Reason: Protocol Last Admin: 05/09/18 09:48 Dose: 200 mls/hr Ketorolac Tromethamine (Toradol) 15 mg IVP Q6 JENNYFER Last Admin: 05/09/18 12:03 Dose: 15 mg Morphine Sulfate (Morphine) 1 mg IV Q4 PRN PRN Reason: Pain, severe (8-10) Last Admin: 05/09/18 05:48 Dose: 1 mg Ondansetron HCl (Zofran Inj) 4 mg IVP Q8H PRN PRN Reason: Nausea/Vomiting - Labs Labs: 05/08/18 20:12 05/08/18 20:52 PT 13.1 SECONDS (9.7-12.2) H 05/08/18 20:18 INR 1.2 05/08/18 20:18 APTT 32 SECONDS (21-34) 05/08/18 20:18 - Constitutional Appears: Well, No Acute Distress - Eye Exam Eye Exam: Normal appearance - Respiratory Exam Respiratory Exam: NORMAL BREATHING PATTERN - Extremities Exam Extremities Exam: Normal Inspection - Neurological Exam Neurological Exam: Awake, CN II-XII Intact - Psychiatric Exam Psychiatric exam: Normal Affect, Normal Mood - Skin Skin Exam: Normal Color Assessment and Plan - Assessment and Plan (Free Text) Assessment: Patient admitted for intra-abdominal collection associated with fever s/p total laparoscopic hysterectomy, BSO, cystoscopy Plan: Discussed CT scan findings with radiologist. Intra-abdominal collection is too small to drain and appears to be mostly expected post surgical changes. Appendix is inflamed and likely reactive due to intra-abdominal collection. However, due to documented fever, patient will be treated prophylactically. Patient will be continued on IV antibiotic regimen until clinically improved.
[2018-05-09 16:55] LABS: BASO # 0.1 K/uL (0.0-0.2); BASO % 0.3 % (0.0-2.0); EOS # 0.3 K/uL (0.0-0.7); EOS % 1.6 % (0.0-4.0); HEMOGLOBIN 10.8 g/dL (11.0-16.0); LYMPH # 1.9 K/uL (1.0-4.3); LYMPH % 11.3 % (20.0-40.0); MEAN CELL VOLUME 80.8 fL (81.0-99.0); MEAN CORPUSCULAR HGB CONC 32.2 g/dL (33.0-37.0); MEAN PLATELET VOLUME 7.3 fL (7.2-11.7); MONO # 1.2 K/uL (0.0-0.8); MONO % 7.2 % (0.0-10.0); NEUT # 13.5 K/uL (1.8-7.0); NEUT % 79.6 % (50.0-75.0); RBC 4.14 Mil/uL (3.80-5.20); RED CELL DISTRIBUTION WIDTH 13.5 % (11.5-14.5); WHITE BLOOD COUNT 16.9 K/uL (4.8-10.8)
--- NOTE | 2018-05-09 18:07 | CP.PCM.HP ---
History of Present Illness - History of Present Illness History of Present Illness: Patient presents due to reported fevers at home associated with abdominal pain since Tuesday. She is s/p uncomplicated total laparoscopic hysterectomy, BSO performed 6 days ago. She denies any nausea, vomiting, SOB, chest pain or any other acute complaints. CAT scan revealed a pelvic collection, which could be anticipated post operative changes and an inflamed appendix which is likely reactive. Due to the presence of mild fever. Prophylactic antibiotics will be given Present on Admission - Present on Admission Any Indicators Present on Admission: No History of DVT/PE: No History of Uncontrolled Diabetes: No Urinary Catheter: No Decubitus Ulcer Present: No History Surgical Site Infection Following: None Review of Systems - Constitutional Constitutional: As Per HPI - EENT Eyes: As Per HPI Ears: As Per HPI Nose/Mouth/Throat: As Per HPI - Breasts Breasts: As Per HPI - Cardiovascular Cardiovascular: As Per HPI - Respiratory Respiratory: As Per HPI - Gastrointestinal Gastrointestinal: Abdominal Pain, Diarrhea - Genitourinary Genitourinary: As Per HPI - Reproductive: Female Reproductive:Female: As Per HPI - Menstruation Menstruation: As Per HPI - Musculoskeletal Musculoskeletal: As Per HPI - Integumentary Integumentary: As Per HPI - Neurological Neurological: As Per HPI - Psychiatric Psychiatric: As Per HPI - Endocrine Endocrine: As Per HPI - Hematologic/Lymphatic Hematologic: As Per HPI Past Patient History - Past Medical History & Family History Past Medical History?: Yes - Past Social History Smoking Status: Former Smoker - CARDIAC Hx Hypercholesterolemia: Yes Hx Hypertension: Yes - PULMONARY Hx Asthma: Yes (NEVER HOSPITALIZED) - NEUROLOGICAL Hx Neurological Disorder: No - HEENT Hx HEENT Problems: No - RENAL Hx Chronic Kidney Disease: No - ENDOCRINE/METABOLIC Hx Hypothyroidism: Yes - HEMATOLOGICAL/ONCOLOGICAL Hx Blood Disorders: No - INTEGUMENTARY Hx Dermatological Problems: No - MUSCULOSKELETAL/RHEUMATOLOGICAL Hx Musculoskeletal Disorders: No Hx Falls: No - GASTROINTESTINAL Hx Gastrointestinal Disorders: No - GENITOURINARY/GYNECOLOGICAL Hx Genitourinary Disorders: Yes Other/Comment: OVARIAN CYST. HX: PELVIC PAIN, MENORRHAGIA, DYSMENORRHEA - PSYCHIATRIC Hx Substance Use: No - SURGICAL HISTORY Hx Tonsillectomy: Yes - ANESTHESIA Hx Anesthesia: Yes Hx Anesthesia Reactions: No Hx Malignant Hyperthermia: No Meds Allergies/Adverse Reactions: Allergies Allergy/AdvReac Type Severity Reaction Status Date / Time No Known Allergies Allergy Verified 04/27/18 07:23 Physical Exam - Constitutional Appears: No Acute Distress - Head Exam Head Exam: NORMAL INSPECTION - Eye Exam Eye Exam: Normal appearance - ENT Exam ENT Exam: Normal Exam - Neck Exam Neck exam: Positive for: Normal Inspection - Respiratory Exam Respiratory Exam: NORMAL BREATHING PATTERN - Cardiovascular Exam Cardiovascular Exam: REGULAR RHYTHM - GI/Abdominal Exam GI & Abdominal Exam: Soft, Tenderness - Extremities Exam Extremities exam: Positive for: normal inspection - Neurological Exam Neurological exam: Alert, CN II-XII Intact, Oriented x3 - Psychiatric Exam Psychiatric exam: Normal Affect, Normal Mood - Skin Skin Exam: Normal Color Results - Vital Signs Recent Vital Signs: Last Vital Signs Temp 99.8 F H 05/09/18 15:47 Pulse 94 H 05/09/18 15:47 Resp 20 05/09/18 15:47 BP 131/79 05/09/18 15:47 Pulse Ox 99 05/09/18 15:47 - Labs Result Diagrams: 05/09/18 16:46 05/08/18 20:52 Labs: Laboratory Results - last 24 hr 05/08/18 05/08/18 05/08/18 19:50 20:12 20:18 WBC 18.1 H D RBC 4.22 Hgb 11.0 Hct 33.7 L MCV 79.8 L MCH 26.1 L MCHC 32.8 L RDW 13.5 Plt Count 308 MPV 7.5 Neut % (Auto) 85.9 H Lymph % (Auto) 6.3 L [place] % (Auto) 6.9 Eos % (Auto) 0.7 Baso % (Auto) 0.2 Neut # (Auto) 15.5 H Lymph # (Auto) 1.1 [place] # (Auto) 1.2 H Eos # (Auto) 0.1 Baso # (Auto) 0.0 Neutrophils % (Manual) 83 H Band Neutrophils % 8 H Lymphocytes % (Manual) 5 L Monocytes % (Manual) 3 Eosinophils % (Manual) 1 Platelet Estimate Normal Hypochromasia (manual) Slight Poikilocytosis (manual Slight Anisocytosis (manual) Slight Target Cells Slight Tear Drop Cells Slight PT 13.1 H INR 1.2 APTT 32 pO2 43 VBG pH 7.44 H VBG pCO2 40 VBG HCO3 26.7 VBG Total CO2 28.4 H VBG O2 Sat (Calc) 84.6 H VBG Base Excess 2.8 H VBG Potassium 3.2 L Sodium 136.0 Chloride 100.0 Glucose 143 H Lactate 1.6 Potassium Carbon Dioxide Anion Gap BUN Creatinine Est GFR ( Amer) Est GFR (Non-Af Amer) Random Glucose Calcium Total Bilirubin AST ALT Alkaline Phosphatase Total Protein Albumin Globulin Albumin/Globulin Ratio Lipase Venous Blood Potassium 3.2 L Urine Color Urine Clarity Urine pH Ur Specific [place] Urine Protein Urine Glucose (UA) Urine Ketones Urine Blood Urine Nitrate Urine Bilirubin Urine Urobilinogen Ur Leukocyte Esterase Urine WBC (Auto) Urine RBC (Auto) Ur Squamous Epith Cells Urine Bacteria 05/08/18 05/08/18 05/09/18 20:52 21:04 16:46 WBC 16.9 H RBC 4.14 Hgb 10.8 L Hct 33.5 L MCV 80.8 L MCH 26.0 L MCHC 32.2 L RDW 13.5 Plt Count 285 MPV 7.3 Neut % (Auto) 79.6 H Lymph % (Auto) 11.3 L [place] % (Auto) 7.2 Eos % (Auto) 1.6 Baso % (Auto) 0.3 Neut # (Auto) 13.5 H Lymph # (Auto) 1.9 [place] # (Auto) 1.2 H Eos # (Auto) 0.3 Baso # (Auto) 0.1 Neutrophils % (Manual) Band Neutrophils % Lymphocytes % (Manual) Monocytes % (Manual) Eosinophils % (Manual) Platelet Estimate Hypochromasia (manual) Poikilocytosis (manual Anisocytosis (manual) Target Cells Tear Drop Cells PT INR APTT pO2 VBG pH VBG pCO2 VBG HCO3 VBG Total CO2 VBG O2 Sat (Calc) VBG Base Excess VBG Potassium Sodium 137 Chloride 98 Glucose Lactate Potassium 3.7 Carbon Dioxide 25 Anion Gap 17 BUN 11 Creatinine 0.8 Est GFR ( Amer) > 60 Est GFR (Non-Af Amer) > 60 Random Glucose 140 H Calcium 8.9 Total Bilirubin 0.7 AST 28 ALT 34 Alkaline Phosphatase 81 Total Protein 7.5 Albumin 4.0 Globulin 3.5 Albumin/Globulin Ratio 1.1 Lipase 26 Venous Blood Potassium Urine Color Yellow Urine Clarity Hazy Urine pH 5.0 Ur Specific [place] 1.005 Urine Protein Negative Urine Glucose (UA) Normal Urine Ketones Negative Urine Blood 2+ H Urine Nitrate Negative Urine Bilirubin Negative Urine Urobilinogen Normal Ur Leukocyte Esterase 3+ H Urine WBC (Auto) 33 H Urine RBC (Auto) 14 H Ur Squamous Epith Cells 8 H Urine Bacteria Rare Assessment & Plan - Assessment and Plan (Free Text) Assessment: s/p total laparoscopic hysterectomy, uncomplicated. Intra-abdominal collection possibly expected postoperative changes associated with mild fever Plan: Pelvic collection and leukocytosis could be incidental findings after surgical procedure. However, due to associated mild fever, patient will be on prophylactic antibiotic regimen. Pelvic collection does not meet criteria for abscess, and is too small to drain as per discussion with Radiologist. - Date & Time Date: 05/09/18 Time: 18:15 Decision To Admit - Pt Status Changed To: Hospital Disposition Of: Observation - . Bed Request Type: Regular
[2018-05-10] MEDS: Piperacillin/Tazobact 3.375 GM in Sodium Chloride 100 ML IVPB SCH ×2 (01:05→08:52)
[2018-05-10 07:36] VITALS: BP 132/89; PULSE 71; TEMP 98.5; O2SAT 98
== END 2018-05-10 13:00 | disposition home or self-care (01) ==
LOC: C.ER 18:57 → C.9E 05-09 00:26 → C.5S 05-09 04:53
PROVIDERS: ADMIT Obstetrics & Gynecology; ATTEND Obstetrics & Gynecology
DX: L02.211 Cutaneous abscess of abdominal wall (principal); Z87.891 Personal history of nicotine dependence; J45.909 Unspecified asthma, uncomplicated; I10 Essential (primary) hypertension; E03.9 Hypothyroidism, unspecified; E78.00 Pure hypercholesterolemia, unspecified; Z98.890 Other specified postprocedural states
CPT/HCPCS: 36415; 71045; 74177; 80053; 81001; 82803; 83690; 85025; 85610; 85730; 87040; 96360; 96374; 99285; G0378; J1885; J2270; J2405; J2543; J3370; J7030; J7050; Q9967

== ENCOUNTER 2019-01-03 12:02 | Emergency (ER) | payer BC ==
[2019-01-03 12:02] VITALS: BMI 33.8
[2019-01-03 12:34] LABS: HCG,QUALITATIVE URINE NEGATIVE (NEGATIVE)
[2019-01-03 12:38] LABS: SQUAMOUS EPITHIAL 2 /hpf (0-5); URINE BACTERIA RARE (<OCC); URINE BILIRUBIN NEGATIVE (NEGATIVE); URINE BLOOD NEGATIVE (NEGATIVE); URINE CLARITY Hazy (Clear); URINE COLOR Yellow (YELLOW); URINE GLUCOSE (UA) NORMAL (Normal); URINE LEUKOCYTE ESTERASE NEG Leu/uL (Negative); URINE PROTEIN NEGATIVE (NEGATIVE); URINE UROBILINOGEN NORMAL mg/dL (0.2-1.0)
--- NOTE | 2019-01-03 13:00 | C.PDOC ---
History Of Present Illness 38 year old female presents to the emergency department with complaints of pelvic, RLQ, and right lower back pain for the last 3 days. Patient states that her pain initially began in the suprapubic region but is now localized to the right pelvis and right lower back. Patient reports a fever of 101F 3 days, associated with nausea and vomiting. Patient has a past surgical history of a hysterectomy in 2018. She reports being evaluated in April 2018 for a possible pelvic abscess and appendicitis but no intervention was done at the time, patient only received antibiotics. PELVIC/RLQ/R LOWER BACK PAIN X 3 DAYS. INITIAL ONSET SUPRAPUB NOW LOCALIZED R PELVIC/R LOWER BACK. +FEVER 101 3 DAYS AGO. +NV. PSH HYST 2017. EVAL 04/2018 FOR POSISBLE PELVIC ABSCESS/APPY BUT NO INTERVENTION DONE. ABX ONLY EXAM MILD DIST ABD +MILD B/L LQ TEND SOFT NO R/G REMAINDER NEG Time Seen by Provider: 01/03/19 12:23 Chief Complaint (Nursing): Abdominal Pain History Per: Patient History/Exam Limitations: no limitations Onset/Duration Of Symptoms: Days (3) Current Symptoms Are (Timing): Still Present Location Of Pain/Discomfort: RLQ, Other (pelvic, right lower back) Radiation Of Pain To:: Back Quality Of Discomfort: "Pain" Associated Symptoms: Fever, Nausea, Vomiting Past Medical History Reviewed: Historical Data, Nursing Documentation, Vital Signs Vital Signs: Last Vital Signs Temp 98.3 F 01/03/19 12:06 Pulse 96 H 01/03/19 12:06 Resp 18 01/03/19 12:06 BP 206/138 H 01/03/19 12:06 Pulse Ox 98 01/03/19 12:06 - Medical History PMH: Asthma (NEVER HOSPITALIZED), HTN, Hypercholesterolemia, Hypothyroidism Denies: Chronic Kidney Disease Surgical History: Tonsillectomy Other Surgeries: Hysterectomy - [facility] Procedures INSPECTION OF BLADDER, ENDO (05/02/18) RESECTION OF BILATERAL FALLOPIAN TUBES, PERC ENDO APPROACH (05/02/18) RESECTION OF BILATERAL OVARIES, PERC ENDO APPROACH (05/02/18) RESECTION OF UTERUS, PERCUTANEOUS ENDOSCOPIC APPROACH (05/02/18) Family History: States: Unknown Family Hx - Social History Hx Alcohol Use: No Hx Substance Use: No - Immunization History Hx Tetanus Toxoid Vaccination: No Hx Influenza Vaccination: No Hx Pneumococcal Vaccination: No Review Of Systems Except As Marked, All Systems Reviewed And Found Negative. Constitutional: Positive for: Fever Cardiovascular: Negative for: Chest Pain Respiratory: Negative for: Cough, Shortness of Breath Gastrointestinal: Positive for: Nausea, Vomiting, Abdominal Pain. Negative for: Diarrhea Genitourinary: Positive for: Pelvic Pain Musculoskeletal: Positive for: Back Pain Physical Exam - Physical Exam Appears: Non-toxic, In Acute Distress (mild distress) Skin: Normal Color, Warm, Dry Head: Atraumatic, Normacephalic Eye(s): bilateral: Normal Inspection, PERRL, EOMI Ear(s): Bilateral: Normal Oral Mucosa: Moist Neck: Normal, Supple Chest: Symmetrical, No Tenderness Cardiovascular: Rhythm Regular, No Murmur Respiratory: Normal Breath Sounds, No Rales, No Rhonchi, No Wheezing Gastrointestinal/Abdominal: Soft, Tenderness (mild bilateral lower quadrant tenderness), No Guarding, No Rebound Back: Normal Inspection, No CVA Tenderness, No Vertebral Tenderness, No Paraspinal Tenderness Extremity: Normal ROM Neurological/Psych: Oriented x3, Normal Speech, Normal Cognition ED Course And Treatment - Laboratory Results Result Diagrams: 01/03/19 13:02 01/03/19 13:02 Lab Results: Urine Color Yellow (YELLOW) 01/03/19 12:27 Urine Clarity Hazy (Clear) 01/03/19 12:27 Urine pH 6.0 (5.0-8.0) 01/03/19 12:27 Ur Specific [place] 1.018 (1.003-1.030) 01/03/19 12:27 Urine Protein Negative mg/dL (NEGATIVE) 01/03/19 12:27 Urine Glucose (UA) Normal mg/dL (Normal) 01/03/19 12:27 Urine Ketones Negative mg/dL (NEGATIVE) 01/03/19 12:27 Urine Blood Negative (NEGATIVE) 01/03/19 12:27 Urine Nitrate Negative (NEGATIVE) 01/03/19 12:27 Urine Bilirubin Negative (NEGATIVE) 01/03/19 12:27 Urine Urobilinogen Normal mg/dL (0.2-1.0) 01/03/19 12:27 Ur Leukocyte Esterase Neg Ivana/uL (Negative) 01/03/19 12:27 Urine WBC (Auto) 1 /hpf (0-5) 01/03/19 12:27 Urine RBC (Auto) 1 /hpf (0-3) 01/03/19 12:27 Ur Squamous Epith Cells 2 /hpf (0-5) 01/03/19 12:27 Urine Bacteria Rare (<OCC) 01/03/19 12:27 Urine HCG, Qual Negative (NEGATIVE) 01/03/19 12:27 Urine HCG, Qual Negative (NEGATIVE) 01/03/19 12:27 O2 Sat by Pulse Oximetry: 98 (RA) Pulse Ox Interpretation: Normal Progress Note: Plan: VBG. CT Abdomen and Pelvis. CMP. Lipase. CBC. Morphine 2mg IVP. Zofran 4mg IVP. HCG Qualitative Urine. Urinalysis Progress - Data Reviewed Data Reviewed: Lab, Diagnostic imaging, Old records Disposition Counseled Patient/Family Regarding: Studies Performed, Diagnosis, Need For F o[place]owup, Rx Given - Disposition Referrals: [facility] [Outside] [facility] [Outside] YOUR,PMD [Other] Disposition: HOME/ ROUTINE Disposition Time: 15:01 Condition: IMPROVED Additional Instructions: START NEURONTIN 01/04/19 Prescriptions: Cyclobenzaprine [Flexeril] 10 mg PO TID #15 tab Gabapentin [Neurontin] 300 mg PO TID #30 cap Ibuprofen [Motrin] 600 mg PO Q6 #30 tab Instructions: Low Back Pain (DC) Forms: [facility] (Japanese), Work Excuse - Clinical Impression Clinical Impression: Abdominal pain, Back pain - Scribe Statement The provider has reviewed the documentation as recorded by the Scribe (Dominic Coe) Provider Attestation: All medical record entries made by the Scribe were at my direction and personally dictated by me. I have reviewed the chart and agree that the record accurately reflects my personal performance of the history, physical exam, medical decision making, and the department course for this patient. I have also personally directed, reviewed, and agree with the discharge instructions and disposition.
[2019-01-03 13:17] LABS: ALB/GLOB RATIO 1.4 (1.0-2.1); ALBUMIN 4.7 g/dL (3.5-5.0); ALT/SGPT 47 U/L (9-52); AST/SGOT 38 U/L (14-36); BLOOD UREA NITROGEN 16 mg/dL (7-17); CALCIUM 10.1 mg/dl (8.6-10.4); GFR NON-AFRICAN AMERICAN > 60; LIPASE 85 U/L (23-300)
[2019-01-03 13:22] LABS: BASO # 0.1 K/uL (0.0-0.2); BASO % 0.9 % (0.0-2.0); EOS # 0.1 K/uL (0.0-0.7); EOS % 1.6 % (0.0-4.0); HEMOGLOBIN 13.1 g/dL (11.0-16.0); LYMPH # 2.5 K/uL (1.0-4.3); MEAN CELL VOLUME 78.5 fL (81.0-99.0); MEAN CORPUSCULAR HEMOGLOBIN 25.4 pg (27.0-31.0); MEAN CORPUSCULAR HGB CONC 32.4 g/dL (33.0-37.0); MEAN PLATELET VOLUME 7.8 fL (7.2-11.7); MONO # 0.5 K/uL (0.0-0.8); MONO % 8.2 % (0.0-10.0); NEUT # 3.4 K/uL (1.8-7.0); NEUT % 51.3 % (50.0-75.0); RBC 5.13 Mil/uL (3.80-5.20); RED CELL DISTRIBUTION WIDTH 14.4 % (11.5-14.5); WHITE BLOOD COUNT 6.7 K/uL (4.8-10.8)
[2019-01-03 13:22] LABS: VENOUS BLOOD GAS BASE EXCESS -1.1 mmol/L (0.0-2.0); VENOUS BLOOD GAS PCO2 33 mmHg (40-60); VENOUS BLOOD GAS PO2 58 mm/Hg (30-55); VENOUS BLOOD PH 7.44 (7.32-7.43)
[2019-01-03] MEDS ORDERED: Iodixanol 320 MG/ML 100 ML BOTTLE IV ONE (13:41)
--- NOTE | 2019-01-03 14:48 | CT ---
Date of service: 01/03/2019 PROCEDURE: CT Abdomen and Pelvis with contrast HISTORY: RLQ/FLANK abd pain SP HYST ?ABSCESS 04/2018 COMPARISON: CT abdomen and pelvis 05/09/2018 TECHNIQUE: Contrast dose: 100 mL Visipaque 320 Radiation dose: Total exam DLP = 950.19 mGy-cm. This CT exam was performed using one or more of the following dose reduction techniques: Automated exposure control, adjustment of the mA and/or kV according to patient size, and/or use of iterative reconstruction technique. FINDINGS: LOWER THORAX: Unremarkable. LIVER: Diffuse fatty infiltration. No gross lesion or dilated ducts noted. GALLBLADDER AND BILE DUCTS: Small otherwise unremarkable PANCREAS: Unremarkable. No gross lesion or ductal dilatation. SPLEEN: Unremarkable. ADRENALS: Unremarkable. No mass. KIDNEYS AND URETERS: Unremarkable. No hydronephrosis. No solid mass. VASCULATURE: Unremarkable. No aortic aneurysm. BOWEL: The left upper quadrant small bowel loops are borderline increased in caliber 3 cm. The bowel loops here show circumferential mild mural thickening oval enhancement findings are compatible with interval enteritis. No small bowel obstruction suspect APPENDIX: Current caliber much less than that before. The prior extensive inflammatory changes have also markedly improved. There may be minimal trace appendiceal mural thickening present this has a before. PERITONEUM: . The prior phlegmonous like process with air and fluid between the bladder and rectum at the post hysterectomy prior site longer seen. Here no residual phlegmonous like inflammatory process seen. No interval walled-off fluid collection to suggest an interval abscess is suggested current appearance suggest a interval healing or resolution of prior phlegmonous changes here. No free fluid. No free air. LYMPH NODES: Unremarkable. No enlarged lymph nodes. BLADDER: Unremarkable. REPRODUCTIVE: Status post hysterectomy. Please note the above peritoneum section BONES: No acute fracture. Bilateral sacroiliac sclerotic arthrosis-similar OTHER FINDINGS: None. IMPRESSION: The prior pelvic phlegmonous process with air and fluid at the prior hysterectomy site shows much improvement in interval resolution on this current exam Here no interval abscess or significant residual inflammatory changes are suggested. The appearance of the appendix is also markedly improved
[2019-01-03] MEDS ORDERED: Labetalol 25mg/5ml Syringe IVP STA (15:27)
[2019-01-03 15:30] VITALS: PULSE 66; RESP 16; O2SAT 99
[2019-01-03] MEDS ORDERED: Labetalol 5mg/ml (4ml) ONE (15:36)
[2019-01-03 16:19] VITALS: BP 159/94; TEMP 98.2
== END 2019-01-03 16:27 | disposition home or self-care (01) ==
LOC: C.ER 12:02
DX: M54.5 Low back pain (principal); R10.31 Right lower quadrant pain; I10 Essential (primary) hypertension; E78.00 Pure hypercholesterolemia, unspecified; E03.9 Hypothyroidism, unspecified
CPT/HCPCS: 74177; 80053; 81001; 82803; 83690; 84703; 85025; 96374; 96375; 99284; J1885; J2270; J2405; Q9967